=== PATIENT | male | born 1965 | race Caucasian/White ===

== ENCOUNTER → 2020-01-08 | Outpatient (REF) | payer OTHER ==
[~2020-01-08] MED LIST: ASPI81TA83 OR; ATEN25TA OR; LIPI20TA OR; LISI5TAB OR; PLAV75TA2 OR
== END ==
LOC: M LAB REF 16:35
PROVIDERS: ATTEND Family Medicine
DX: R68.82 Decreased libido (principal)

== ENCOUNTER 2020-08-07 08:37 | Day surgery (SDC) | payer OTHER ==
[~2020-08-07] VITALS: Ht 175.3 cm; Wt 80.3 kg
[~2020-08-07 08:37] MED LIST changes: +ATEN25TA PO; +ATOR1TAB21 PO; +CLOP75TA2 PO; +ECOT81TA5 PO; +FISH1000 PO; +LISI-542 PO; +NS 1,000 ML IV ONE
[2020-08-07] MEDS ORDERED: LIDOCAINE 2% 100MG/5ML SDV (FOR ANES.) As Ordered ONE (09:34)
[2020-08-07] MEDS ORDERED: propofoL 200 MG/20 ML VIAL As Ordered ONE (09:34)
[2020-08-07] MEDS ORDERED: fentaNYL 100 MCG/2 ML INJECTION (J3010) As Ordered ONE (09:34)
--- NOTE | 2020-08-07 10:30 | ROOR ---
Patient Name: Adrian Milian Procedure Date: 08/07/2020 10:09 AM Date of : 1965 Age: 55 Room: [facility] Gender: Male Note Status: Finalized Procedure: Upper Endoscopy + Biopsies Indications: Heartburn, Exclusion of Martinez's esophagus Providers: Alden Fraga MD Referring MD: Reji Baptiste MD Requesting Provider: Medicines: Monitored Anesthesia Care Complications: No immediate complications. Procedure: Pre-Anesthesia Assessment: - The heart rate, respiratory rate, oxygen saturations, blood pressure, adequacy of pulmonary ventilation, and response to care were monitored throughout the procedure. The Endoscope was introduced through the mouth, and advanced to the second part of duodenum. The upper GI endoscopy was accomplished without difficulty. The patient tolerated the procedure well. Findings: The Z-line was variable and was found 35 cm from the incisors. Multiple biopsies were obtained with cold forceps for evaluation to rule out Martinez's Esophagus randomly at the gastroesophageal junction. Localized moderate inflammation characterized by congestion (edema), erosions, aphthous ulcerations and shallow ulcerations was found in the gastric antrum. Biopsies were taken with a cold forceps for Helicobacter pylori testing. The exam of the duodenum was otherwise normal. Impression: - Z-line variable, 35 cm from the incisors. - Mucosal changes suspicious for gastritis. Biopsied. - Multiple biopsies were obtained at the gastroesophageal junction. - The examination was otherwise normal. Recommendation: - Patient has a contact number available for emergencies. The signs and symptoms of potential delayed complications were discussed with the patient. Return to normal activities tomorrow. Written discharge instructions were provided to the patient. - High fiber diet. - Discharge patient to home. - Follow an antireflux regimen. - Use Prilosec (omeprazole) 40 mg PO daily. - Await pathology results. - Telephone GI clinic for pathology results in 1 week. - Return to referring physician. - The findings and recommendations were discussed with the patient. Procedure Code(s): --- Professional --- 56310, Esophagogastroduodenoscopy, flexible, transoral; with biopsy, single or multiple Diagnosis Code(s): --- Professional --- K22.8, Other specified diseases of esophagus K31.89, Other diseases of stomach and duodenum R12, Heartburn CPT copyright 2019 [employer]. All rights reserved. The codes documented in this report are preliminary and upon medical center director review may be revised to meet current compliance requirements. Alden Fraga MD Alden Fraga MD 08/07/2020 10:29:44 AM Electronically signed by Alden Fraga MD Number of Addenda: 0 Note Initiated On: 08/07/2020 10:09 AM Estimated Blood Loss: Estimated blood loss: none.
--- NOTE | 2020-08-07 10:46 | ROOR ---
Patient Name: Adrian Milian Procedure Date: 08/07/2020 10:10 AM Date of : 1965 Age: 55 Room: [facility] Gender: Male Note Status: Finalized Procedure: Total Colonoscopy to Cecum + Biopsy Polypectomy Indications: High risk colon cancer surveillance: Personal history of colonic polyps, Last colonoscopy: 2014 Providers: Alden Fraga MD Referring MD: Reji Baptiste MD Requesting Provider: Medicines: Monitored Anesthesia Care Complications: No immediate complications. Procedure: Pre-Anesthesia Assessment: - The heart rate, respiratory rate, oxygen saturations, blood pressure, adequacy of pulmonary ventilation, and response to care were monitored throughout the procedure. The Colonoscope was introduced through the anus and advanced to the cecum, identified by appendiceal orifice and ileocecal valve. The colonoscopy was performed without difficulty. The patient tolerated the procedure well. The quality of the bowel preparation was excellent. Findings: The perianal and digital rectal examinations were normal. Non-bleeding internal hemorrhoids were found during retroflexion. The hemorrhoids were small and Grade I (internal hemorrhoids that do not prolapse). A small polyp was found at 20 cm proximal to the anus. The polyp was sessile. The polyp was removed with a cold biopsy forceps. Resection and retrieval were complete. The exam was otherwise without abnormality on direct and retroflexion views. Impression: - Non-bleeding internal hemorrhoids. - One small polyp at 20 cm proximal to the anus, removed with a cold biopsy forceps. Resected and retrieved. - The examination was otherwise normal on direct and retroflexion views. - The exam was otherwise normal to the cecum. Recommendation: - Patient has a contact number available for emergencies. The signs and symptoms of potential delayed complications were discussed with the patient. Return to normal activities tomorrow. Written discharge instructions were provided to the patient. - High fiber diet. - Discharge patient to home. - Continue present medications. - Await pathology results. - Telephone GI clinic for pathology results in 1 week. - Repeat colonoscopy in 5 years for surveillance based on pathology results. - Return to referring physician. - The findings and recommendations were discussed with the patient. Procedure Code(s): --- Professional --- 87181, Colonoscopy, flexible; with biopsy, single or multiple Diagnosis Code(s): --- Professional --- Z86.010, Personal history of colonic polyps K64.0, First degree hemorrhoids K63.5, Polyp of colon CPT copyright 2019 [employer]. All rights reserved. The codes documented in this report are preliminary and upon clinical staff rn review may be revised to meet current compliance requirements. Alden Fraga MD Alden Fraga MD 08/07/2020 10:45:58 AM Electronically signed by Alden Fraga MD Number of Addenda: 0 Note Initiated On: 08/07/2020 10:10 AM Estimated Blood Loss: Estimated blood loss: none.
[2020-08-07 11:19] VITALS: BP 135/75
== END 2020-08-07 11:19 | disposition home or self-care (01) ==
LOC: M OPP 08:37
PROVIDERS: ATTEND Internal Medicine Gastroenterology
DX: Z12.11 Encounter for screening for malignant neoplasm of colon (principal); Z86.010 Personal history of colon polyps; R12 Heartburn; K63.5 Polyp of colon; K64.0 First degree hemorrhoids; D13.0 Benign neoplasm of esophagus; D13.1 Benign neoplasm of stomach; K22.8 Other specified diseases of esophagus; K31.89 Other diseases of stomach and duodenum; I25.10 Atherosclerotic heart disease of native coronary artery without angina pectoris; I25.2 Old myocardial infarction; I10 Essential (primary) hypertension; Z95.5 Presence of coronary angioplasty implant and graft; Z79.82 Long term (current) use of aspirin; Z79.899 Other long term (current) drug therapy
CPT/HCPCS: 43239; 45380; 88305; J3010

== ENCOUNTER → 2022-12-11 | Outpatient (REF) | payer OTHER ==
[~2022-12-11] MED LIST changes: -LISI-542 PO; +LISI5TAB11 PO; -NS 1,000 ML IV ONE
== END ==
LOC: M LAB REF 16:23
PROVIDERS: ATTEND Family Medicine
DX: M54.16 Radiculopathy, lumbar region (principal)

== ENCOUNTER → 2025-03-12 | Outpatient (CLI) | payer OTHER | LOC: M RAD 08:21 | PROVIDERS: ATTEND Family Medicine | DX: Z87.891 Personal history of nicotine dependence (principal) ==